=== PATIENT | female | born 2000 | race Caucasian/White ===

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

== ENCOUNTER 2019-01-16 05:44 | Inpatient (IN) ==
[2019-01-16] MEDS ORDERED: Naloxone 0.4 MG/ML INJ IVP PRN (05:55)
[2019-01-16] MEDS ORDERED: Famotidine 20 MG/2 ML VIAL IVP PRN (05:55)
[2019-01-16] MEDS ORDERED: Metoclopramide 10 MG/2 ML VIAL IVP PRN ×2 (05:55→12:56)
[2019-01-16] MEDS ORDERED: Ringers Solution, Lactated 1,000 ML IVC ONE (05:59)
[2019-01-16] MEDS ORDERED: Ringers Solution, Lactated 1,000 ML IVC SCH (06:00)
[2019-01-16 06:28] LABS: Basophils % 0.4 %; Eosinophils # 0.1 K/mcL (0.0-0.6); Eosinophils % 0.8 %; Hematocrit 35.7 % (35.3-44.9); Hemoglobin 12.4 g/dL (11.5-15.4); Immature Granulocytes % 0.8 % (0-4); Lymphocytes # 2.2 K/mcL (0.6-4.6); Mean Corpuscular HGB Conc 34.7 g/dL (31.6-35.5); Mean Corpuscular Hemoglobin 30.2 pg (28.0-33.3); Mean Corpuscular Volume 86.9 fL (83.0-100.0); Mean Platelet Volume 9.8 fL (9.4-12.4); Monocytes # 0.7 K/mcL (0.0-1.3); Monocytes % 6.7 %; Neutrophils # 7.1 K/mcL (1.6-8.9); Platelet Count 223 K/mcL (140-400); Red Blood Count 4.11 M/mcL (3.82-4.97); Red Cell Distribution Width 13.1 % (11.5-14.5); Segmented Neutrophils % 69.3 %; White Blood Count 10.2 K/mcL (4.3-11.1)
[2019-01-16 06:41] LABS: Amphetamine Screen,Urine Negative ng/mL (Cutoff=1000); Barbiturate Screen,Urine Negative ng/mL (Cutoff=200)
[2019-01-16 06:42] LABS: Benzodiazepines Screen,Urine Negative ng/mL (Cutoff=300); Cannabinoid Screen,Urine Positive ng/mL (Cutoff = 50); Cocaine Screen,Urine Negative ng/mL (Cutoff= 300); Opiate Screen,Urine Negative ng/mL (Cutoff=300); Phencyclidine Screen,Urine Negative ng/mL (Cutoff=25)
[2019-01-16 06:44] LABS: eGFR For African Americans > 60; eGFR For Non-African Americans > 60
[2019-01-16] MEDS ORDERED: CeFAZolin Premix DUPLEX 2,000 MG/50 ML BAG IVPB ONE (07:00)
[2019-01-16] MEDS ORDERED: *HR* FentaNYL (PF) 100 MCG/2 ML VIAL ONE (07:39)
[2019-01-16] MEDS ORDERED: *HR* Morphine Sulfate/PF 10 MG/10 ML AMPUL ONE (07:39)
[2019-01-16] MEDS ORDERED: Ondansetron 4 MG/2 ML VIAL IVP ONE (08:13)
[2019-01-16] MEDS ORDERED: Acetaminophen IV 1,000 MG/100 ML INFUS..BTL IVPB ONE (08:13)
[2019-01-16] MEDS ORDERED: *HR* HYDROmorphone (PF) 1 MG/ML SYRINGE IVP PRN (08:13)
[2019-01-16] MEDS ORDERED: Ringers Solution, Lactated 1,000 ML ONE ×2 (08:21→09:23)
[2019-01-16] MEDS ORDERED: *HR* Oxytocin 10 UNIT/ML VIAL IM ONE ×2 (08:22→09:23)
[2019-01-16 08:42] LABS: Cord Arterial Blood HCO3 27 mEq/L; Cord Arterial Blood Oxygen Sat 21 %
[2019-01-16 08:48] LABS: Cord Venous Blood HCO3 26 mEq/L; Cord Venous Blood PCO2 49 mmHg (27-42); Cord Venous Blood PO2 20 mmHg (15-45)
[2019-01-16] MEDS ORDERED: *HR* Phenylephrine 10 MG/ML VIAL ONE (09:04)
[2019-01-16 10:16] LABS: Hematocrit 34.8 % (35.3-44.9); Hemoglobin 11.8 g/dL (11.5-15.4)
[2019-01-16] MEDS: Acetaminophen 325 MG TABLET PO SCH ×2 (12:15→17:51)
[2019-01-16] MEDS: Oxytocin 20 units/ LR 1000 mL 20 UNIT/1,000 ML BAG IVC SCH ×2 (12:15→17:30)
[2019-01-16] MEDS ORDERED: Ondansetron 4 MG/2 ML VIAL IVP PRN (12:56)
[2019-01-16] MEDS ORDERED: Sennosides 8.6 MG TABLET PO PRN (12:56)
[2019-01-16] MEDS: Ketorolac 30 MG/ML VIAL IVP SCH ×2 (14:27→20:45)
[2019-01-16] MEDS: Simethicone 80 MG TAB.CHEW PO SCH ×2 (14:27→22:11)
[2019-01-17] MEDS: Acetaminophen 325 MG TABLET PO SCH ×4 (00:16→18:34)
[2019-01-17] MEDS: Oxytocin 20 units/ LR 1000 mL 20 UNIT/1,000 ML BAG IVC SCH (01:06)
[2019-01-17] MEDS: Ketorolac 30 MG/ML VIAL IVP SCH (02:39)
[2019-01-17 06:36] LABS: Basophils % 0.2 %; Eosinophils # 0.1 K/mcL (0.0-0.6); Eosinophils % 0.9 %; Hematocrit 27.9 % (35.3-44.9); Immature Granulocytes % 0.3 % (0-4); Lymphocytes # 1.3 K/mcL (0.6-4.6); Lymphocytes % 13.9 %; Mean Corpuscular HGB Conc 35.1 g/dL (31.6-35.5); Mean Corpuscular Hemoglobin 30.6 pg (28.0-33.3); Mean Corpuscular Volume 87.2 fL (83.0-100.0); Mean Platelet Volume 9.7 fL (9.4-12.4); Monocytes # 0.7 K/mcL (0.0-1.3); Monocytes % 7.4 %; Neutrophils # 7.1 K/mcL (1.6-8.9); Platelet Count 189 K/mcL (140-400); Red Cell Distribution Width 13.1 % (11.5-14.5); Segmented Neutrophils % 77.3 %; White Blood Count 9.1 K/mcL (4.3-11.1)
[2019-01-17 06:38] LABS: Hemoglobin 9.8 g/dL (11.5-15.4)
[2019-01-17] MEDS: Prenatal Vit/FA 1 EACH TABLET PO SCH (08:19)
[2019-01-17] MEDS: Simethicone 80 MG TAB.CHEW PO SCH ×3 (08:19→21:53)
[2019-01-17] MEDS: Ibuprofen 600 MG TABLET PO SCH ×2 (10:20→18:35)
[2019-01-17] MEDS: *HR* OxyCODONE/APAP 5/325 TABLET PO PRN (13:18)
[2019-01-18] MEDS: Acetaminophen 325 MG TABLET PO SCH ×2 (00:07→08:22)
[2019-01-18] MEDS: Ibuprofen 600 MG TABLET PO SCH ×2 (00:08→08:22)
[2019-01-18] MEDS: *HR* OxyCODONE/APAP 5/325 TABLET PO PRN (00:09)
[2019-01-18 08:04] VITALS: BP 125/85
[2019-01-18] MEDS: Prenatal Vit/FA 1 EACH TABLET PO SCH (08:22)
[2019-01-18] MEDS: Simethicone 80 MG TAB.CHEW PO SCH (10:22)
== END 2019-01-18 10:39 | disposition home or self-care (01) | DRG 540 ==
LOC: 1NENULAB 05:44 → 1NENUOBS 10:40
PROVIDERS: ADMIT Obstetrics & Gynecology; ATTEND Obstetrics & Gynecology